=== PATIENT | female | born 1960 | race Caucasian/White ===

== ENCOUNTER 2022-03-30 12:58 | Inpatient (IN) | payer BC ==
[2022-03-30] MEDS ORDERED: Promethazine HCl 25 MG/ML VIAL IM PRN (15:44)
[2022-03-30] MEDS ORDERED: Morphine 2 MG/ML VIAL SLOW IVP PRN (15:44)
[2022-03-30] MEDS ORDERED: Ondansetron PF 4 MG/2 ML Vial IVP PRN (15:44)
[2022-03-30] MEDS ORDERED: Cyclobenzaprine 10 MG TAB PO PRN (15:47)
[2022-03-30] MEDS ORDERED: traMADol HCl 50 MG TAB PO PRN (15:47)
[2022-03-30] MEDS ORDERED: Ibuprofen 600 MG TAB PO PRN (15:47)
[2022-03-30 16:25] LABS: #Lymphocytes 1.9 thou/uL (1.20-3.40); #Monocytes 0.9 thou/uL (0.11-0.59); #Neutrophils 6.7 thou/uL (1.40-6.50); %Basophils 0.4 % (0.0-1.0); %Eosinophils 0.5 % (0.0-10.0); %Lymphocytes 20.1 % (21.0-51.0); %Monocytes 8.9 % (0.0-10.0); %Neutrophils 70.1 % (42.0-75.0); Hemoglobin 10.4 g/dL (12.0-16.0); Mean Corpuscular HGB CONC 32.6 g/dL (32.0-36.0); Mean Platelet Volume 7.3 fL (7.4-10.4); Platelet Count 168 thou/uL (130-400); RBC Distribution Width 12.1 % (11.5-14.5); Red Blood Cell (RBC) Count 3.46 mill/uL (4.20-5.40); White Blood Cell (WBC) Count 9.5 thou/uL (4.8-10.8)
[2022-03-30 16:35] LABS: PTT 29.3 sec (22.9-36.1); Prothrombin Time 13.2 sec (12.0-14.7)
[2022-03-30 16:44] LABS: Anion Gap 15 mmol/L (10-20); BUN (Urea Nitrogen) 11 mg/dL (9.8-20.1); Calc. Creatinine Clearance 0 mL/min (70-130); Carbon Dioxide 24 mmol/L (22-29); Chloride 93 mmol/L (98-107); Potassium 4.3 mmol/L (3.5-5.1); Sodium 128 mmol/L (136-145)
[2022-03-30 16:45] LABS: Calcium 8.7 mg/dL (7.8-10.44); Estimated GFR 103; Glucose 195 mg/dL (70-105); Magnesium 1.5 mg/dL (1.6-2.6); Phosphorus 3.3 mg/dL (2.3-4.7)
[2022-03-30 17:03] VITALS: BMI 20.6
[2022-03-30] MEDS ORDERED: Dextrose 50% Abboject 50 ML SYRINGE SLOW IVP PRN (17:04)
[2022-03-30] MEDS ORDERED: Dextrose 5% in Water 1,000 ML IV PRN (17:04)
[2022-03-30] MEDS ORDERED: hydrALAZINE 20 MG/ML VIAL SLOW IVP PRN (17:05)
[2022-03-30] MEDS: Sodium Chloride 0.9% 1,000 ML IV SCH (18:21)
[2022-03-30] MEDS ORDERED: Magnesium Sulfate 3 GM in Sodium Chloride 0.9% 100 ML IVPB SCH (18:45)
[2022-03-30] MEDS: traMADol HCl 50 MG TAB PO SCH ×3 (18:46→23:41)
[2022-03-30] MEDS: Acetaminophen 500 MG TAB PO SCH ×2 (18:52→23:41)
[2022-03-30] MEDS: Famotidine 20 MG TAB PO SCH (20:11)
[2022-03-30] MEDS: Senokot S 8.6-50 MG TAB PO SCH (20:11)
[2022-03-31] MEDS: Sodium Chloride 0.9% 1,000 ML IV SCH (02:24)
[2022-03-31] MEDS: traMADol HCl 50 MG TAB PO SCH ×3 (05:55→17:20)
[2022-03-31] MEDS: Acetaminophen 500 MG TAB PO SCH ×3 (05:56→17:20)
[2022-03-31 05:58] LABS: #Eosinphils 0.2 thou/uL (0.0-0.7); #Lymphocytes 1.6 thou/uL (1.20-3.40); #Monocytes 0.6 thou/uL (0.11-0.59); #Neutrophils 3.6 thou/uL (1.40-6.50); %Basophils 0.7 % (0.0-1.0); %Eosinophils 2.5 % (0.0-10.0); %Lymphocytes 26.7 % (21.0-51.0); %Neutrophils 60.2 % (42.0-75.0); Hemoglobin 9.7 g/dL (12.0-16.0); Mean Corpuscular HGB CONC 32.7 g/dL (32.0-36.0); Mean Corpuscular Hemoglobin 30.4 pg (27.0-31.0); Mean Corpuscular Volume 92.9 fL (78.0-98.0); Mean Platelet Volume 7.8 fL (7.4-10.4); Platelet Count 163 thou/uL (130-400); RBC Distribution Width 12.3 % (11.5-14.5); White Blood Cell (WBC) Count 6.1 thou/uL (4.8-10.8)
[2022-03-31 06:17] LABS: Anion Gap 12 mmol/L (10-20); BUN (Urea Nitrogen) 8 mg/dL (9.8-20.1); Calc. Creatinine Clearance 103 mL/min (70-130); Calcium 8.3 mg/dL (7.8-10.44); Carbon Dioxide 25 mmol/L (22-29); Chloride 98 mmol/L (98-107); Estimated GFR 106; Glucose 153 mg/dL (70-105); Potassium 3.9 mmol/L (3.5-5.1); Sodium 131 mmol/L (136-145)
[2022-03-31] MEDS ORDERED: fentaNYL Citrate/PF 100 MCG/2 ML SYRINGE ONE (07:12)
[2022-03-31] MEDS ORDERED: HYDROmorphone 0.5 MG/0.5 ML SYRINGE ONE (07:12)
[2022-03-31] MEDS: Atorvastatin Calcium 10 MG TAB PO SCH (07:36)
[2022-03-31] MEDS: Famotidine 20 MG TAB PO SCH ×2 (07:36→22:00)
[2022-03-31] MEDS: Multivitamin W/ Minerals 1 TAB PO SCH (07:37)
[2022-03-31] MEDS: Polyethylene Glycol 3350 17 GM Packet PO SCH (07:37)
[2022-03-31] MEDS: Senokot S 8.6-50 MG TAB PO SCH ×2 (07:37→22:00)
[2022-03-31] MEDS ORDERED: CEFAZOLIN 2 GM VIAL ONE (07:39)
[2022-03-31] MEDS ORDERED: Sodium Chloride 0.9% 100 ML ONE (07:39)
[2022-03-31] MEDS ORDERED: ceFAZolin 2 GM/Dextrose 50 ML 2 GM in Premix Bag 1 BAG IVPB SCH ×2 (07:45→14:00)
[2022-03-31] MEDS ORDERED: CEFAZOLIN 2 GM in Sodium Chloride 0.9% 100 ML IVPB SCH (07:45)
[2022-03-31] MEDS ORDERED: Lidocaine 1% PF 5 ML VIAL ONE (08:20)
[2022-03-31] MEDS ORDERED: Ketorolac Tromethamine 30 MG/ML VIAL ONE (08:20)
[2022-03-31] MEDS ORDERED: ePHEDrine 50 MG/ML VIAL ONE (08:20)
[2022-03-31] MEDS ORDERED: Dexamethasone 20 MG/5 ML VIAL ONE (08:20)
[2022-03-31] MEDS ORDERED: Ondansetron PF 4 MG/2 ML Vial ONE (08:20)
[2022-03-31] MEDS ORDERED: PROPOFOL 200 MG/20 ML VIAL ONE (08:20)
[2022-03-31] MEDS ORDERED: Bupivacaine PF 0.5% 30 ML VIAL ONE (08:41)
[2022-03-31] MEDS ORDERED: EPINEPHrine 1 MG/ML AMP ONE (08:41)
[2022-03-31] MEDS ORDERED: Promethazine HCl 25 MG/ML VIAL IVPB PRN (09:46)
[2022-03-31] MEDS ORDERED: Ondansetron HCl/PF 4 MG/2 ML Vial IVP PRN (09:46)
[2022-03-31] MEDS ORDERED: Promethazine HCl 25 MG/ML VIAL IM PRN (09:46)
[2022-03-31] MEDS ORDERED: HYDROmorphone 2 MG/ML VIAL SLOW IVP PRN (09:46)
[2022-03-31] MEDS: HumaLOG 300 UNITS/3 ML VIAL SC PRN ×2 (11:45→18:16)
[2022-03-31] MEDS: CEFAZOLIN 2 GM in Sodium Chloride 0.9% 100 ML IVPB SCH ×2 (14:41→22:01)
[2022-04-01] MEDS: traMADol HCl 50 MG TAB PO SCH ×2 (00:33→05:41)
[2022-04-01] MEDS: Acetaminophen 500 MG TAB PO SCH ×2 (00:34→05:41)
[2022-04-01] MEDS: HumaLOG 300 UNITS/3 ML VIAL SC PRN ×2 (00:42→05:43)
[2022-04-01 06:00] LABS: Hemoglobin 9.7 g/dL (12.0-16.0)
[2022-04-01] MEDS: Senokot S 8.6-50 MG TAB PO SCH (08:54)
[2022-04-01] MEDS: Multivitamin W/ Minerals 1 TAB PO SCH (08:54)
[2022-04-01] MEDS: Famotidine 20 MG TAB PO SCH (08:54)
[2022-04-01] MEDS: Polyethylene Glycol 3350 17 GM Packet PO SCH (08:54)
[2022-04-01] MEDS: Atorvastatin Calcium 10 MG TAB PO SCH (08:54)
[2022-04-01] MEDS ORDERED: Enoxaparin Sodium 40 MG/0.4 ML SYRINGE SC SCH (09:00)
[2022-04-01 09:15] VITALS: BP 102/57; TEMP 97.8
== END 2022-04-01 11:00 | disposition home or self-care (01) | DRG 493 ==
LOC: SURG B 15:37
PROVIDERS: ADMIT Surgery; ATTEND Surgery
PROC: 0QSK04Z Reposition Left Fibula with Internal Fixation Device, Open Approach (ICD-10-PCS; principal; 2022-03-31)
PROC: 0QSH04Z Reposition Left Tibia with Internal Fixation Device, Open Approach (ICD-10-PCS; 2022-03-31)
DX: S82.842A Displaced bimalleolar fracture of left lower leg, initial encounter for closed fracture (principal); E87.1 Hypo-osmolality and hyponatremia; W17.89XA Other fall from one level to another, initial encounter; E11.9 Type 2 diabetes mellitus without complications; Z20.822 Contact with and (suspected) exposure to COVID-19; I10 Essential (primary) hypertension; Z79.84 Long term (current) use of oral hypoglycemic drugs; Z79.899 Other long term (current) drug therapy; Z90.710 Acquired absence of both cervix and uterus
CPT/HCPCS: 36415; 36416; 76000; 80048; 83735; 84100; 85014; 85018; 85025; 85610; 85730; 86850; 86900; 86901; C1713; J0171; J0690; J1100; J1170; J1650; J1885; J2405; J2704; J3475; J3490; J7050; S0020

== ENCOUNTER 2022-04-29 11:59 | Outpatient (CLI) | payer BC ==
[2022-04-29 13:45] LABS: Anion Gap 15 mmol/L (10-20); BUN (Urea Nitrogen) 18 mg/dL (9.8-20.1); Calc. Creatinine Clearance 0 mL/min (70-130); Carbon Dioxide 26 mmol/L (22-29); Chloride 101 mmol/L (98-107); Estimated GFR 96; Glucose 201 mg/dL (70-105); Potassium 4.3 mmol/L (3.5-5.1); Sodium 138 mmol/L (136-145)
== END 2022-04-29 12:00 | disposition home or self-care (01) ==
LOC: LABBT 11:59
PROVIDERS: ATTEND Orthopaedic Surgery
DX: Z01.818 Encounter for other preprocedural examination (principal); T85.848A Pain due to other internal prosthetic devices, implants and grafts, initial encounter; Z20.822 Contact with and (suspected) exposure to COVID-19
CPT/HCPCS: 80048; 87811; 93005; 93010

== ENCOUNTER 2022-04-30 12:15 | Observation (INO) | payer BC ==
[2022-04-30] MEDS ORDERED: fentaNYL Citrate/PF 100 MCG/2 ML SYRINGE ONE (14:12)
[2022-04-30] MEDS ORDERED: Midazolam HCl 2 mg/2 ml Vial ONE (14:17)
[2022-04-30] MEDS ORDERED: Sodium Chloride 0.9% 100 ML ONE (14:25)
[2022-04-30] MEDS ORDERED: CEFAZOLIN 2 GM VIAL ONE (14:25)
[2022-04-30] MEDS ORDERED: Ketorolac Tromethamine 30 MG/ML VIAL ONE (14:32)
[2022-04-30] MEDS ORDERED: Dexamethasone 20 MG/5 ML VIAL ONE (14:32)
[2022-04-30] MEDS ORDERED: PROPOFOL 200 MG/20 ML VIAL ONE (14:32)
[2022-04-30] MEDS ORDERED: Phenylephrine 10 MG/ML VIAL ONE (14:32)
[2022-04-30] MEDS ORDERED: Lidocaine 1% PF 5 ML VIAL ONE (14:32)
[2022-04-30] MEDS ORDERED: Ondansetron PF 4 MG/2 ML Vial ONE (14:32)
[2022-04-30] MEDS ORDERED: Ondansetron PF 4 MG/2 ML Vial IVP PRN (15:07)
[2022-04-30] MEDS ORDERED: Acetaminophen 325 MG TAB PO PRN (15:07)
[2022-04-30] MEDS ORDERED: traMADol HCl 50 MG TAB PO PRN (15:07)
[2022-04-30] MEDS ORDERED: HYDROcodone/Acetaminophen 10/325 mg Tablet PO PRN (15:07)
[2022-04-30] MEDS ORDERED: TETANUS AND DIPHTHERIA TOX/PF 0.5 ML DISP.SYRIN IM SCH (15:15)
[2022-04-30] MEDS ORDERED: Fentanyl 100 MCG/2 ML VIAL ONE (15:25)
[2022-04-30] MEDS ORDERED: Morphine Sulfate 2 MG/ML SYRINGE SLOW IVP PRN (15:26)
[2022-04-30] MEDS ORDERED: HYDROmorphone 2 MG/ML VIAL SLOW IVP PRN (15:26)
[2022-04-30] MEDS ORDERED: Meperidine HCl/PF 25 MG/ML VIAL SLOW IVP PRN (15:26)
[2022-04-30] MEDS ORDERED: Promethazine HCl 25 MG/ML VIAL IM PRN (15:26)
[2022-04-30] MEDS ORDERED: Promethazine HCl 25 MG/ML VIAL IVPB PRN (15:26)
[2022-04-30] MEDS ORDERED: Ondansetron HCl/PF 4 MG/2 ML Vial IVP PRN (15:26)
[2022-04-30] MEDS ORDERED: Meperidine HCl/PF 25 MG/ML VIAL ONE (15:49)
[2022-04-30] MEDS ORDERED: HYDROmorphone 0.5 MG/0.5 ML SYRINGE ONE ×2 (16:01→16:59)
[2022-04-30 17:57] VITALS: BMI 20.2
[2022-04-30] MEDS: Vancomycin 1 GM in Premix Bag 1 BAG IVPB SCH (18:13)
[2022-04-30] MEDS: HYDROcodone/Acetaminophen 10/325 mg Tablet PO PRN (20:26)
[2022-04-30] MEDS: Cefepime 2 GM in Sodium Chloride 0.9% 100 ML IVPB SCH (20:29)
[2022-04-30] MEDS ORDERED: VANCOMYCIN 1.25 GM/250 ML BAG IVPB SCH (21:00)
[2022-05-01] MEDS ORDERED: Cefepime 2 GM in Sodium Chloride 0.9% 100 ML IVPB SCH (03:00)
[2022-05-01] MEDS: Vancomycin 1 GM in Premix Bag 1 BAG IVPB SCH (05:25)
[2022-05-01] MEDS: Cefepime 2 GM in Sodium Chloride 0.9% 100 ML IVPB SCH (07:51)
[2022-05-01] MEDS: metFORMIN 500 MG TAB PO SCH ×2 (08:30→16:26)
[2022-05-01] MEDS ORDERED: Lisinopril 10 MG TAB PO SCH (09:00)
[2022-05-01] MEDS: HYDROcodone/Acetaminophen 10/325 mg Tablet PO PRN (10:43)
[2022-05-01 16:36] VITALS: BP 112/65; TEMP 98.1
[2022-05-01] MEDS ORDERED: Atorvastatin Calcium 10 MG TAB PO SCH (21:00)
== END 2022-05-01 17:00 | disposition home or self-care (01) ==
LOC: SDC 12:15 → T4-A 17:50
PROVIDERS: ADMIT Orthopaedic Surgery; ATTEND Orthopaedic Surgery
PROC: 0JQR0ZZ Repair Left Foot Subcutaneous Tissue and Fascia, Open Approach (ICD-10-PCS; principal; 2022-04-30)
PROC: 0SPG04Z Removal of Internal Fixation Device from Left Ankle Joint, Open Approach (ICD-10-PCS; 2022-04-30)
DX: T84.84XA Pain due to internal orthopedic prosthetic devices, implants and grafts, initial encounter (principal); T81.31XA Disruption of external operation (surgical) wound, not elsewhere classified, initial encounter; Z79.84 Long term (current) use of oral hypoglycemic drugs; Z79.899 Other long term (current) drug therapy; Y79.3 Surgical instruments, materials and orthopedic devices (including sutures) associated with adverse incidents
CPT/HCPCS: 36416; 87070; 87205; 97139; J0690; J0692; J1100; J1170; J1885; J2175; J2250; J2370; J2405; J2704; J3010; J3370; J3490

== ENCOUNTER 2023-08-20 06:34 | Day surgery (SDC) | payer BC ==
[2023-08-19 16:38] VITALS: BMI 20.3
[2023-08-20] MEDS ORDERED: fentaNYL PF 100 MCG/2 ML SYRINGE ONE (07:48)
[2023-08-20] MEDS ORDERED: PROPOFOL 20 ML ONE (07:48)
[2023-08-20 07:56] LABS: Hematocrit 35.8 % (36.0-47.0)
[2023-08-20] MEDS ORDERED: Oxymetazoline HCl 0.05% (30 ML BOT) ONE ×2 (08:01→08:23)
[2023-08-20] MEDS ORDERED: Bacitracin Zinc Ointment 30 gm TUBE ONE (08:23)
[2023-08-20] MEDS ORDERED: Lidocaine 1% (PF) 30 ML VIAL ONE ×2 (08:24→08:25)
[2023-08-20] MEDS ORDERED: EPINEPHrine 1 MG/ML VIAL ONE (08:25)
[2023-08-20] MEDS ORDERED: Magnesium 5 GM/10 ML VIAL ONE (08:28)
[2023-08-20] MEDS ORDERED: PROPOFOL 200 MG/20 ML VIAL ONE (08:40)
[2023-08-20] MEDS ORDERED: Ondansetron PF 4 MG/2 ML Vial ONE (08:40)
[2023-08-20] MEDS ORDERED: Dexamethasone 20 MG/5 ML VIAL ONE (08:40)
[2023-08-20] MEDS ORDERED: MINERAL OIL/WHITE PETROLATUM 3.5 GM TUBE ONE (08:44)
[2023-08-20] MEDS ORDERED: Lidocaine 1% MPF 2 ML VIAL ONE (08:57)
[2023-08-20] MEDS ORDERED: PHENYLEPHRINE-NS 100 MCG/ML 10 ML SYRINGE ONE (08:57)
[2023-08-20] MEDS ORDERED: fentaNYL 50 mcg/mL 1 mL Vial ONE (09:39)
[2023-08-20] MEDS ORDERED: Hydrocodone-Acetamin 15 ML UDCUP ONE (10:37)
== END 2023-08-20 11:33 | disposition home or self-care (01) ==
LOC: SDC 06:34
PROVIDERS: ATTEND Otolaryngology Plastic Surgery within the Head & Neck
PROC: 09TR8ZZ Resection of Left Maxillary Sinus, Via Natural or Artificial Opening Endoscopic (ICD-10-PCS; principal; 2023-08-20)
PROC: 09TV8ZZ Resection of Left Ethmoid Sinus, Via Natural or Artificial Opening Endoscopic (ICD-10-PCS; principal; 2023-08-20)
PROC: 8E09XBZ Computer Assisted Procedure of Head and Neck Region (ICD-10-PCS; principal; 2023-08-20)
PROC: 09TU8ZZ Resection of Right Ethmoid Sinus, Via Natural or Artificial Opening Endoscopic (ICD-10-PCS; principal; 2023-08-20)
PROC: 09BL8ZZ Excision of Nasal Turbinate, Via Natural or Artificial Opening Endoscopic (ICD-10-PCS; principal; 2023-08-20)
PROC: 09TQ8ZZ Resection of Right Maxillary Sinus, Via Natural or Artificial Opening Endoscopic (ICD-10-PCS; principal; 2023-08-20)
DX: J34.3 Hypertrophy of nasal turbinates (principal); J32.8 Other chronic sinusitis; J33.9 Nasal polyp, unspecified; I10 Essential (primary) hypertension; E11.9 Type 2 diabetes mellitus without complications; F10.90 Alcohol use, unspecified, uncomplicated; Z90.710 Acquired absence of both cervix and uterus; Z79.84 Long term (current) use of oral hypoglycemic drugs; Z79.899 Other long term (current) drug therapy
CPT/HCPCS: 36415; 36416; 85014; 93005; 93010; J0171; J1100; J2001; J2405; J2704; J3010; J3475